=== PATIENT | male | born 1985 | race Caucasian/White ===

== ENCOUNTER → 2016-05-11 | Outpatient (CLI) | payer MEDICAID ==
--- NOTE | 2016-05-11 18:37 | US ---
Testicular Sonogram Clinical Indications: Bilateral scrotal pain. Comparison: May 06, 2011. Technique: Scrotal contents were imaged with the high-resolution transducer. Color and pulsed Doppl er were recorded on each side. Findings: The right testicle is normal in size, morphology and echotexture and measures 3.0 x 2.2 x 4.3 cm. Flow is normal. The epididymis is unremarkable. Resistive index is 0.62. Left testicle measures 2.9 x 2.4 x 4.8 cm. Flow is normal with a resistive index of 0.5. Epididymis i s unremarkable. Small bilateral varicoceles are present, not significantly changed from the prior examination. Impression: Small bilateral varicoceles. Critical results relayed by Dr. Moy Caldwell to Dr. Chris Bill on May 11, 2016 at 1833 hours.
== END ==
LOC: FIMAGING 17:29
PROVIDERS: ATTEND Family Medicine
DX: I86.1 Scrotal varices (principal)

== ENCOUNTER → 2016-05-24 | Outpatient (CLI) | payer MEDICAID ==
[~2016-05-24] MED LIST: IOPAMIDOL (ISOVUE-370) 150 ML BTL IV ONE
--- NOTE | 2016-05-24 18:15 | CT ---
Unenhanced and Contrast-Enhanced CT Scan of the Abdomen and Pelvis Clinical History: 30-year-old male with a history of scrotal varices who has some scrotal and lower a bdominal pain. ICD-10 Diagnostic Code: I86.1. TECHNIQUE: After enteric contrast, an unenhanced helical CT scan of the abdomen and pelvis was obtain ed. The patient then received 90 mL of IV Isovue 370 without complication, and a multidetector contra st enhanced helical CT scan was obtained during the portal venous phase, with images acquired from th e lung bases inferiorly through the proximal femora, reformatted at 5.00 and 1.25 mm increments, and reviewed at a variety of window and level settings. Parasagittal and paracoronal reconstructed images were reviewed on the workstation. The DFOV is 38.0 cm. Dose reduction protocol was used. COMPARISON STUDIES: Testicular sonography dated 05/11/2016 and 05/06/2011, CT imaging of the lumbar spi ne dated 02/09/2011, and lumbar spine radiographs dated 01/26/2011 (which identified 6 lumbar vertebral body levels). FINDINGS: Unenhanced CT Scan of the Abdomen and Pelvis: The lung bases are clear. There is no pleural or perica rdial effusion. There are no hepatic, gallbladder, pancreatic, splenic, adrenal, renal, ureteral, uri nary bladder, or aortic vascular calcifications. A couple of curvilinear calcifications are seen in t he central prostate gland. There is severe degenerative disk space narrowing at L5-L6 with broad-base d circumferential disk bulging and a vacuum disk phenomenon. Contrast-Enhanced CT Scan of the Abdomen: There is some scattered subcentimeter hypodensities in the liver, statistically representing tiny cysts. There is no bile duct dilatation. The gallbladder is p artially distended. The stomach is distended with fluid and ingested debris, as well as some residual enteric contrast. Enteric contrast is noted as well in the small bowel and throughout the large ki l. The pancreatic contour is normal. The spleen, adrenal glands, and kidneys are normal. There is no CT evidence of hydronephrosis, pyelonephritis, focal renal mass, nor is there any perinephric fluid o r retroperitoneal adenopathy. There is no ascites. The abdominal aorta and the IVC are normal in tiffany shamika. Contrast-Enhanced CT Scan of the Pelvis: The urinary bladder is incompletely-distended. The prostate gland and seminal vesicles are unremarkable. There is no retroperitoneal adenopathy. There are some tiny pelvic venous varices; however, there is no retroperitoneal obstructive process. IMPRESSION: 1. Tiny hepatic cysts. 2. Normal appearance to the kidneys and the renal collecting systems. 3. Tiny pelvic venous varices, with no retroperitoneal obstructive process identified. 4. Advanced degenerative disk disease with circumferential disk bulging at "L5-L6."
== END ==
LOC: CIMAGING 14:41
PROVIDERS: ATTEND Specialist
DX: I86.1 Scrotal varices (principal); R10.30 Lower abdominal pain, unspecified; N28.1 Cyst of kidney, acquired; M51.36 Other intervertebral disc degeneration, lumbar region
CPT/HCPCS: 74178-PO; Q9967